=== PATIENT | male | born 1975 | race Caucasian/White ===

== ENCOUNTER 2017-09-03 09:30 | Emergency (ER) | payer SELFPAY ==
[2017-09-03] MEDS ORDERED: PPD test dose* 5 TU/0.1 ML TEST (*USE PPD ORDER SET*) ONE (10:06)
== END 2017-09-03 21:37 | disposition home or self-care (01) ==
LOC: UCEAST 09:30
DX: Z11.1 Encounter for screening for respiratory tuberculosis (principal)
CPT/HCPCS: 99211; G0463

== ENCOUNTER 2017-09-18 04:23 | Emergency (ER) | payer OTHER ==
[2017-09-18 06:27] LABS: Hematocrit 44 % (42-52); Hemoglobin 14.8 g/dl (14.0-18.0); Mean Corpuscular HGB Conc 34 g/dl (31-36); Mean Corpuscular Hemoglobin 31 pg (27-31); Mean Corpuscular Volume 93 fL (80-94); Mean Platelet Volume 8 um3 (7.4-10.4); Red Blood Count 4.72 10^6/ul (4.0-5.4); Red Cell Distribution Width 13 % (10.5-15); White Blood Count 6.7 10^3/ul (3.5-10.8)
[2017-09-18 06:45] LABS: Albumin 4.7 g/dL (3.2-5.2); BUN/Creatinine Ratio 15.9 (8-20); Calcium 9.9 mg/dL (8.6-10.3); EGFR African American 92.4 (>60); EGFR Non-African American 71.9 (>60); Globulin 2.6 g/dL (2-4); Total Bilirubin 0.8 mg/dL (0.2-1.0); Total Protein 7.3 g/dL (6.4-8.9)
[2017-09-18 06:47] LABS: Troponin I 0.01 ng/mL (<0.04)
[2017-09-18 07:15] VITALS: BP 111/67
[2017-09-21 14:46] LABS: Codeine, Ur Not Detected ng/mL (Cutoff: 25); Creatinine, Urine 279.4 mg/dL; Fentanyl, Ur Not Detected ng/mL (Cutoff: 2); Hydrocodone, Ur Not Detected ng/mL (Cutoff: 25); Hydromorphone, Ur Not Detected ng/mL (Cutoff: 25); Hydromorphone3betaglucuronide Not Detected; Morphine, Ur Not Detected ng/mL (Cutoff: 25); Norfentanyl, Ur Not Detected ng/mL (Cutoff: 2); Norhydrocodone, Ur Not Detected ng/mL (Cutoff: 25); Noroxycodone, Ur Not Detected ng/mL (Cutoff: 25); Oxycodone, Ur Not Detected ng/mL (Cutoff: 25); Oxymorphone, Ur Not Detected ng/mL (Cutoff: 25); Specific Gravity 1.015; Tramadol, Ur Not Detected ng/mL (Cutoff: 25); Urine Tetrahydrocannabinol Presumptive Positive ng/mL (Cutoff: 50); pH 6.5
[2017-09-21 15:13] LABS: Urine Carboxy THC Confirm 87 ng/mL; Urine THC Interpretation Positive.
--- NOTE | 2017-09-28 15:03 | ED ---
Eric Jonas Jason, scribed for Talat Li MD on 09/18/17 at 0456 . Syncope/Near Syncope - HPI Summary HPI Summary: This patient is a 42 year old M presenting to [facility] accompanied by girlfriend with a chief complaint of syncope since today at 0400.The pt reports that he had a feinting spell which he has been experiencing since he was 9 years old, but the spells havent been as severe as this one. I mustve panicked from thinking I had a hernia. Additionally, he states that he has a hemorrhoid and fell on the ground [address] [employer]. The patient rates the pain 0/10 in severity. Symptoms aggravated by nothing. Symptoms alleviated by nothing. Patient reports hand numbness, lightheadedness, feet numbness, chills, gluteus pain. Patient denies hx of seizures. - History Of Current Complaint Chief Complaint: EDSyncope Hx Obtained From: Patient Onset/Duration: Gradual Onset Timing: Constant Context: Loss Of Consciousness Associated Head Trauma: No Aggravating Factor(s): Other - "mustve panicked from thinking I had a hernia" Alleviating Factor(s): Nothing Associated Signs And Symptoms: Other - Patient reports hand numbness, lightheadedness, feet numbness, chills, gluteus pain. - Allergies/Home Medications Allergies/Adverse Reactions: Allergies Allergy/AdvReac Type Severity Reaction Status Date / Time No Known Allergies Allergy Verified 06/01/16 15:25 PMH/Surg Hx/FS Hx/Imm Hx Previously Healthy: No Endocrine/Hematology History: Denies: Hx Diabetes, Hx Thyroid Disease Cardiovascular History: Denies: Hx Hypertension Respiratory History: Denies: Hx Asthma, Hx Chronic Obstructive Pulmonary Disease (COPD) GI History: Denies: Hx Ulcer Neurological History: Reports: Other Neuro Impairments/Disorders - Hx Feinting spells Denies: Hx Seizures - Immunization History Date of Tetanus Vaccine: utd Date of Influenza Vaccine: 2015 Infectious Disease History: No Infectious Disease History: Denies: Hx Hepatitis, Hx Human Immunodeficiency Virus (HIV), Traveled Outside the [place] in Last 30 Days - Family History Known Family History: Positive: Cardiac Disease - Grandfather Negative: Blood Disorder - Social History Occupation: Employed Full-time - Self-employed Lives: Alone Alcohol Use: Weekly Substance Use Type: Reports: Marijuana Substance Use Comment - Amount & Last Used: quit 11 days ago, used to smoke everyday Smoking Status (MU): Never Smoked Tobacco Review of Systems Positive: Chills Positive: Other - Gluteus pain due to Hemmorhoid Neurological: Other - Lightheaded Positive: Numbness - Hands, feet, Syncope All Other Systems Reviewed And Are Negative: Yes Physical Exam - Summary Physical Exam Summary: Appearance: Well-appearing, Well-nourished, No acute distress, no trauma noted Skin: Warm, Dry, No rash Eyes: Normal, PERRL, EOMI, sclera anicteric ENT: Normal Neck: Supple, nontender Respiratory: Clear to auscultation Cardiovascular: S1, S2, no murmur, no rub, no gallop Abdomen: Soft, nontender, no organomegaly Bowel sounds: Present Musculoskeletal: Normal, Strength/ROM Intact, no edema, pulses symmetrical Neurological: Normal, A&Ox3, cranial nerves 2-12 wnl, follows commands, gait not tested, sensation intact to pin and light touch Psychiatric: affect normal, behavior appropriate, dressed appropriately, judgment intact rectal exam: evidence of anal fissure by palpation. Most tender in anterior anal verge with sentinel pile. Triage Information Reviewed: Yes Vital Signs On Initial Exam: Initial Vitals Temp Pulse Resp BP Pulse Ox 97 F 62 18 104/59 100 09/18/17 04:25 09/18/17 04:25 09/18/17 04:25 09/18/17 04:25 09/18/17 04:25 Vital Signs Reviewed: Yes - [place] Coma Scale Coma Scale Total: 15 Diagnostics - Vital Signs Vital Signs Temp Pulse Resp BP Pulse Ox 09/18/17 04:25 97 F 62 18 104/59 100 - Laboratory Lab Results: Lab Results 09/18/17 09/18/17 09/18/17 Range/Units 05:25 05:25 06:40 WBC 6.7 (3.5-10.8) 10^3/ul RBC 4.72 (4.0-5.4) 10^6/ul Hgb 14.8 (14.0-18.0) g/dl Hct 44 (42-52) % MCV 93 (80-94) fL MCH 31 (27-31) pg MCHC 34 (31-36) g/dl RDW 13 (10.5-15) % Plt Count 227 (150-450) 10^3/ul MPV 8 (7.4-10.4) um3 Neut % (Auto) 63.8 (38-83) % Lymph % (Auto) 23.6 L (25-47) % [place] % (Auto) 7.4 (1-9) % Eos % (Auto) 3.9 (0-6) % Baso % (Auto) 1.3 (0-2) % Absolute Neuts (auto) 4.3 (1.5-7.7) 10^3/ul Absolute Lymphs (auto) 1.6 (1.0-4.8) 10^3/ul Absolute Monos (auto) 0.5 (0-0.8) 10^3/ul Absolute Eos (auto) 0.3 (0-0.6) 10^3/ul Absolute Basos (auto) 0.1 (0-0.2) 10^3/ul Absolute Nucleated RBC 0 10^3/ul Nucleated RBC % 0 Sodium 135 (133-145) mmol/L Potassium 4.0 (3.5-5.0) mmol/L Chloride 102 (101-111) mmol/L Carbon Dioxide 26 (22-32) mmol/L Anion Gap 7 (2-11) mmol/L BUN 18 (6-24) mg/dL Creatinine 1.13 (0.67-1.17) mg/dL Est GFR ( Amer) 92.4 (>60) Est GFR (Non-Af Amer) 71.9 (>60) BUN/Creatinine Ratio 15.9 (8-20) Glucose 126 H (70-100) mg/dL Calcium 9.9 (8.6-10.3) mg/dL Total Bilirubin 0.80 (0.2-1.0) mg/dL AST 23 (13-39) U/L ALT 17 (7-52) U/L Alkaline Phosphatase 32 L (34-104) U/L Troponin I 0.01 (<0.04) ng/mL Total Protein 7.3 (6.4-8.9) g/dL Albumin 4.7 (3.2-5.2) g/dL Globulin 2.6 (2-4) g/dL Albumin/Globulin Ratio 1.8 (1-3) U O-Euibnlkdx-Pxtdkdize Not detected (Cutoff: 50) ng/mL Urine Noroxymorphone Not detected (Cutoff: 25) ng/mL Ur Opiates Note See comment U Normeperidine Screen Not detected (Cutoff: 25) ng/mL Ur Codeine Screen Not detected (Cutoff: 25) ng/mL Urine Dihydrocodeine Not detected (Cutoff: 25) ng/mL U Lufupfp-3-k-Glucuron Not detected ng/mL Ur Buprenorphine Scrn Not detected (Cutoff: 5) ng/mL Ur Norbuprenorphine Not detected (Cutoff: 5) ng/mL U Norbuprenorph Glucur Not detected (Cutoff: 20) ng/mL Ur Morphine Screen Not detected (Cutoff: 25) ng/mL U Ggamvglh-9-m-Glucuron Not detected ng/mL Ur 6-Monoacetylmorphine Not detected (Cutoff: 25) ng/mL Ur Hydrocodone Screen Not detected (Cutoff: 25) ng/mL Ur Norhydrocodone Not detected (Cutoff: 25) ng/mL Ur Oxycodone Screen Not detected (Cutoff: 25) ng/mL Ur Noroxycodone Comment Not detected (Cutoff: 25) ng/mL Urine Oxymorphone Not detected (Cutoff: 25) ng/mL U Gwxmov-2-W-Glucuron Not detected ng/mL Ur EDDP (Meth Metab) Not detected (Cutoff: 25) ng/mL Urine Methadone Screen Not detected (Cutoff: 25) ng/mL U Hydromorphone Screen Not detected (Cutoff: 25) ng/mL U Mspwwgxyqcseo-4-v-Glucur Not detected ng/mL Urine Naloxone Not detected (Cutoff: 25) ng/mL U Rajnfxim-5-l-Glucur Not detected ng/mL Urine Fentanyl Screen Not detected (Cutoff: 2) ng/mL Ur Norfentanyl Screen Not detected (Cutoff: 2) ng/mL Urine Tapentadol Not detected (Cutoff: 25) ng/mL U Xduvcclmhc-r-Lewtsl Not detected ng/mL Urine Tramadol Sreen Not detected (Cutoff: 25) ng/mL U T-ftdoqfnfu-Rtanadlh Not detected (Cutoff: 25) ng/mL Ur Propoxyphene Screen Not detected (Cutoff: 25) ng/mL Ur Norpropoxyphene Not detected (Cutoff: 25) ng/mL Ur Barbiturates, Quant Negative ng/mL Ur Phencyclidine (PCP) Negative (Cutoff: 25) ng/mL Urine Amphetamine Negative ng/mL Ur Benzodiazepine, Qnt Negative ng/mL U Meperidine Screen Not detected (Cutoff: 25) ng/mL Urine Cocaine Negative ng/mL Ur THC Chain of Custody Not Reportable Urine Marijuana (THC) Presumptive positive (Cutoff: 50) ng/mL Ur Carboxy THC GC/MS 87 ng/mL Ur THC Interpretation Positive. Adltrnts U Creatinine 279.4 mg/dL Adulterants Ur pH 6.5 Adulterants Ur Oxidants Negative Ur Adulterants Comment Normal Urine Specific [place] 1.015 Result Diagrams: 09/18/17 05:25 09/18/17 05:25 Lab Statement: Any lab studies that have been ordered have been reviewed, and results considered in the medical decision making process. - EKG 0443 Cardiac Rate: NL EKG Rhythm: Sinus Rhythm ST Segment: Normal Ectopy: None EKG Interpretation: probable normal early repolarization pattern Course/Dx Course Of Treatment: This patient is a 42 year old M presenting to [facility] accompanied by girlfriend with a chief complaint of syncope since today at 0400.The pt reports that he had a feinting spell which he has been experiencing since he was 9 years old, but the spells havent been as severe as this one. I mustve panicked from thinking I had a hernia. Additionally, he states that he has a hemorrhoid and fell on the ground [address] [employer]. The patient rates the pain 0/10 in severity. Symptoms aggravated by nothing. Symptoms alleviated by nothing. Patient reports hand numbness, lightheadedness, feet numbness, chills, gluteus pain. Patient denies hx of seizures. Assessment/Plan: An EKG reveals normal sinus rhythm at 61 bpm, probable early repolarization pattern. Patient will be discharged and follow up with PCP. The patient is agreeable with this plan. Impression of Panic attack and anal fissure, and Possible vasovagal syncope. - Diagnoses Provider Diagnoses: Anal fissure, Near syncope Discharge - Discharge Plan Condition: Good Disposition: HOME Patient Education Materials: Anal Fissure (ED), Syncope (ED), Anxiety (ED) Referrals: Noble Harrington MD [Medical Doctor] - Aylin San MD [Medical Doctor] - No Primary Care Phys,NOPCP [Primary Care Provider] - Additional Instructions: sitz baths, keep stools soft The documentation as recorded by the Eric elias Jason accurately reflects the service I personally performed and the decisions made by me, Talat Li MD.
== END 2017-09-18 07:28 | disposition home or self-care (01) ==
LOC: ED 04:23
DX: K60.2 Anal fissure, unspecified (principal); R55 Syncope and collapse
CPT/HCPCS: 36415; 80053; 80307; 80349; 80364; 84484; 85025; 93005; 99283; G0480

== ENCOUNTER 2018-01-15 10:43 | Emergency (ER) | payer SELFPAY ==
[2018-01-15 11:00] VITALS: BP 103/48
--- NOTE | 2018-01-15 11:58 | UC ---
Eye Complaint HPI - HPI Summary HPI Summary: 42 WM no pmhx c/o left upper eyelid infection with swelling, apin and tenderness x 3 days, denies visual changes - History of Current Complaint Chief Complaint: UCEye Stated Complaint: EYE COMPLAINT Time Seen by Provider: 01/15/18 11:37 Hx Obtained From: Patient Onset/Duration: Sudden Onset, Lasting Days Severity Currently: Moderate Pain Intensity: 1 - Allergies/Home Medications Allergies/Adverse Reactions: Allergies Allergy/AdvReac Type Severity Reaction Status Date / Time No Known Allergies Allergy Verified 01/15/18 11:00 PMH/Surg Hx/FS Hx/Imm Hx - Additional Past Medical History Additional PMH: none Previously Healthy: Yes - Surgical History Surgical History: None - Family History Known Family History: Positive: None - noncontibutory, Cardiac Disease - Grandfather Negative: Blood Disorder - Social History Alcohol Use: Occasionally Alcohol Amount: monthly Substance Use Type: None Substance Use Comment - Amount & Last Used: quit 11 days ago, used to smoke everyday Smoking Status (MU): Never Smoked Tobacco Review of Systems Constitutional: Negative Skin: Other - left upper eyelid infection Eyes: Negative ENT: Negative Respiratory: Negative Cardiovascular: Negative Gastrointestinal: Negative Genitourinary: Negative Motor: Negative Neurovascular: Negative Musculoskeletal: Negative Neurological: Negative Psychological: Negative All Other Systems Reviewed And Are Negative: Yes Physical Exam Triage Information Reviewed: Yes Appearance: Well-Appearing Vital Signs: Initial Vital Signs Temp 36.4 C 01/15/18 10:55 Pulse 67 01/15/18 10:55 Resp 18 01/15/18 10:55 BP 103/48 01/15/18 10:55 Pulse Ox 98 01/15/18 10:55 Eye Exam: Normal ENT: Positive: Other - left upper lid chalazion -swelling, erythema tenderness size about 5mm with small 2mm pustule seen in mid-lid lashline Dental Exam: Normal Neck exam: Normal Neck: Positive: 1 Respiratory Exam: Normal Cardiovascular Exam: Normal Abdominal Exam: Normal Musculoskeletal Exam: Normal Neurological Exam: Normal Psychological Exam: Normal Skin Exam: Normal Eye Complaint Course/Dx - Differential Dx/Diagnosis Provider Diagnoses: left chalazion. left blepharitis Discharge - Discharge Plan Condition: Stable Disposition: HOME Prescriptions: Neomycin/Polymy/Dex OPHTH.OIN* [Maxitrol 0.1% Opth*] 1 applic .SEE ORDER TID 7 Days #1 ophth.oint Patient Education Materials: Chalazion (ED), Blepharitis (ED) Referrals: No Primary Care Phys,NOPCP [Primary Care Provider] - Additional Instructions: continue warm compresses and apply antibiotic ointment as directed
== END 2018-01-15 12:00 | disposition home or self-care (01) ==
LOC: UCEAST 10:43
DX: H00.14 Chalazion left upper eyelid (principal); H01.004 Unspecified blepharitis left upper eyelid
CPT/HCPCS: 99212; G0463

== ENCOUNTER 2018-09-22 08:17 | Emergency (ER) | payer SELFPAY ==
--- NOTE | 2018-09-22 08:44 | ED ---
Back Pain - HPI Summary HPI Summary: Patient presents with acute onset right flank pain which happened last night. He reports he was standing in the kitchen when he felt a sudden pop followed by what he felt like fluid draining in the area. He reports this pain was stabbing last night however has dulled into an aching soreness. Pain is worse with position change however he denies radicular symptoms. He denies any activity to of triggered this such as reaching, lifting, bending, twisting, sneezing or coughing. Reports this just happened spontaneously. 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 He reports this does not feel like any previous musculoskeletal injuries had in the past. He has not tried any pain medication or here ice prior to arrival. No change in bowel or bladder habits. He's been able to both urinate and defecate without difficulty. Denies dysuria, urinary frequency , urinary hesitation, hematuria, hematochezia, melena. Furthermore he has no headache, URI symptoms, chest pain, shortness of breath, abdominal pain, nausea , vomiting, diarrhea, fevers chills. He does admit to a history of bronchitis a couple weeks ago however this is improved without residual issues status post treatment with antibiotic (augmentin). - History of Current Complaint Chief Complaint: EDFlankPain Stated Complaint: BACK PAIN Time Seen by Provider: 09/22/18 08:24 Hx Obtained From: Patient, Family/Watch Crystal Grinder - , Marylu Pain Intensity: 5 - Allergies/Home Medications Allergies/Adverse Reactions: Allergies Allergy/AdvReac Type Severity Reaction Status Date / Time No Known Allergies Allergy Verified 09/22/18 08:22 Home Medications: Home Medications NK [No Home Medications Reported] 09/22/18 [History Confirmed 09/22/18] PMH/Surg Hx/FS Hx/Imm Hx Previously Healthy: Yes Endocrine/Hematology History: Denies: Hx Anticoagulant Therapy, Hx Blood Disorders, Hx Diabetes, Hx Thyroid Disease, Autoimmune Disease Cardiovascular History: Denies: Hx Aneurysm, Hx Hypercholesterolemia, Hx Hypertension Respiratory History: Denies: Hx Asthma, Hx Chronic Obstructive Pulmonary Disease (COPD) GI History: Denies: Hx Ulcer History: Denies: Hx Kidney Infection, Hx Kidney Stones Musculoskeletal History: Reports: Hx Back Problems - recurring back issues d/t laborous job and scoliosis Neurological History: Reports: Other Neuro Impairments/Disorders - Hx fainting spells Denies: Hx Seizures Psychiatric History: Reports: Other Psychiatric Issues/Disorders - insomnia - Immunization History Date of Tetanus Vaccine: utd Date of Influenza Vaccine: 2015 Infectious Disease History: No Infectious Disease History: Denies: Hx Hepatitis, Hx Human Immunodeficiency Virus (HIV), Traveled Outside the [place] in Last 30 Days - Family History Known Family History: Positive: Cardiac Disease - Grandfather Negative: Blood Disorder - Social History Occupation: Employed Full-time Lives: With Family - Alcohol Use: Occasionally Alcohol Amount: 2 x month Hx Substance Use: No Substance Use Type: Reports: None Substance Use Comment - Amount & Last Used: quit 11 days ago, used to smoke everyday Hx Tobacco Use: No Smoking Status (MU): Never Smoked Tobacco Review of Systems Constitutional: Negative Negative: Fever, Chills, Fatigue Eyes: Negative ENT: Negative Cardiovascular: Negative Respiratory: Negative Gastrointestinal: Negative Genitourinary: Negative Positive: see HPI Musculoskeletal: Other - Rt flank pain/QL region pain Skin: Negative Neurological: Negative Positive: Anxious - concerned All Other Systems Reviewed And Are Negative: Yes Physical Exam Triage Information Reviewed: Yes Vital Signs On Initial Exam: Initial Vitals Temp Pulse Resp BP Pulse Ox 97.3 F 57 16 139/78 99 09/22/18 08:18 09/22/18 08:18 09/22/18 08:18 09/22/18 08:18 09/22/18 08:18 Vital Signs Reviewed: Yes Appearance: Positive: Well-Appearing, No Pain Distress, Well-Nourished Skin: Positive: Warm, Skin Color Reflects Adequate Perfusion, Dry - no erythema , no ecchymosis, no lesions over affected areas Head/Face: Positive: Normal Head/Face Inspection Eyes: Positive: Normal, EOMI, SANDRA, Conjunctiva Clear ENT: Positive: Normal ENT inspection, Hearing grossly normal, Pharynx normal - mucosa moist Neck: Positive: Supple, Nontender - FROM w/o pain or restriction Respiratory/Lung Sounds: Positive: Clear to Auscultation, Breath Sounds Present. Negative: Rales, Rhonchi, Tracheal Deviation, Wheezes Cardiovascular: Positive: Normal, RRR, Pulses are Symmetrical in both Upper and Lower Extremities, S1, S2. Negative: Murmur, Rub, Leg Edema Left, Leg Edema Right Abdomen Description: Positive: Nontender, No Organomegaly, Soft. Negative: CVA Tenderness (R), CVA Tenderness (L), Distended, Guarding Bowel Sounds: Positive: Present Male Genital Exam: Positive: Other - deferred - no sx in this region Musculoskeletal: Positive: Strength/ROM Intact, Other - pain in Rt flank w/ B/L SLR - mild and no radicular pain; (-) Wang's test but reports Rt flank pain w / this movement. Negative: Pain @ - Rt QL is NTTP Neurological: Positive: Normal, Sensory/Motor Intact, Alert, Oriented to Person Place, Time, CN Intact II-III, Reflexes Intact Psychiatric: Positive: Anxious Diagnostics - Vital Signs Vital Signs Temp Pulse Resp BP Pulse Ox 09/22/18 08:28 64 100 09/22/18 08:27 62 136/81 100 09/22/18 08:18 97.3 F 57 16 139/78 99 - Laboratory Result Diagrams: 09/22/18 08:59 09/22/18 08:59 Lab Statement: Any lab studies that have been ordered have been reviewed, and results considered in the medical decision making process. Back Pain Course/Dx - Course Course Of Treatment: CT: no acute findings. Labs: unremarkable for acute pathology. Suspect muscle strain - advise close f/u w/ PCP if sx persist or worsen. REviewed danger s/sx of when to return to ED - Diagnoses Provider Diagnoses: Lumbar strain Discharge - Sign-Out/Discharge Documenting (check all that apply): Patient Departure - Discharge Plan Condition: Stable Disposition: HOME Patient Education Materials: Low Back Strain (ED) Referrals: [facility] [Outside] Additional Instructions: You appear to have a right-sided lower back strain. This may be treated with ice alternating with heat and gentle stretches. Additionally, you may take Tylenol alternating with ibuprofen as needed for pain. It is important to also stay hydrated and avoid diuretics such as caffeine and alcohol to improve muscle hydration. If symptoms persist or worsen, follow-up with your primary care doctor. If you do not have one, you may follow up with [facility], a clinic here in the hospital. Contact information provided today. *If you develop danger signs and symptoms such as numbness, tingling, weakness, difficulty breathing or swallowing, change in bowel or bladder habits, return to the emergency department. - Billing Disposition and Condition Condition: STABLE Disposition: Home
[2018-09-22 09:00] LABS: Urine Appearance Cloudy; Urine Blood Negative (Negative); Urine Color Yellow; Urine Ketones Negative (Negative); Urine Protein Negative (Negative); Urine Red Blood Cell Trace(0-2/hpf) (Absent); Urine Specific Gravity 1.021 (1.010-1.030); Urine Urobilinogen Negative (Negative); Urine White Blood Cell Trace(0-5/hpf) (Absent)
[2018-09-22 09:11] LABS: ABS Basophils 0.1 10^3/ul (0-0.2); ABS Eosinophils 0.3 10^3/ul (0-0.6); ABS Lymphocytes 1.3 10^3/ul (1.0-4.8); ABS Monocytes 0.5 10^3/ul (0-0.8); ABS Nucleated RBC 0 10^3/ul; Eosinophil % 5.6 % (0-6); Hematocrit 41 % (42-52); Hemoglobin 14.1 g/dl (14.0-18.0); Lymphocyte % 25.6 % (25-47); Mean Corpuscular HGB Conc 34 g/dl (31-36); Mean Corpuscular Hemoglobin 31 pg (27-31); Mean Corpuscular Volume 92 fL (80-94); Mean Platelet Volume 7.7 fL (7.4-10.4); Nucleated Red Blood Cells % 0; Platelet Count 251 10^3/ul (150-450); Red Blood Count 4.52 10^6/ul (4.00-5.40); Red Cell Distribution Width 13 % (10.5-15); White Blood Count 5.3 10^3/ul (3.5-10.8)
[2018-09-22 09:37] LABS: INR 0.87 (0.77-1.02)
[2018-09-22 09:49] LABS: EGFR Non-African American 90.7 (>60)
[2018-09-22 11:06] VITALS: BP 131/77
== END 2018-09-22 11:04 | disposition home or self-care (01) ==
LOC: ED 08:17
DX: S39.012A Strain of muscle, fascia and tendon of lower back, initial encounter (principal); X58.XXXA Exposure to other specified factors, initial encounter; Y92.9 Unspecified place or not applicable; M51.37 Other intervertebral disc degeneration, lumbosacral region
CPT/HCPCS: 36415; 72131; 74176; 80053; 81003; 81015; 83605; 85025; 85610; 85730; 86140; 87086; 99282